=== PATIENT | female | born 1970 | race African-American/Black ===

== ENCOUNTER 2023-04-27 20:40 | Emergency (ER) | payer OTHER ==
[~2023-04-27] VITALS: Ht 162.6 cm; Wt 80.9 kg
[2023-04-27] MEDS ORDERED: FLEXERIL 1010 MG/TAB PO (23:10)
[2023-04-27] MEDS ORDERED: NAPROSYN500 MG PO (23:10)
[2023-04-27 23:39] VITALS: BP 124/70; PULSE 76
== END 2023-04-27 23:53 | disposition home or self-care (01) ==
LOC: COL.ER 20:40
DX: M54.16 Radiculopathy, lumbar region (principal); Z79.899 Other long term (current) drug therapy; Z79.891 Long term (current) use of opiate analgesic; Z88.6 Allergy status to analgesic agent

== ENCOUNTER 2024-02-11 14:47 | Emergency (ER) | payer OTHER ==
[~2024-02-11] VITALS: Ht 160 cm; Wt 82.3 kg
[~2024-02-11 14:47] MED LIST: FLEXERIL 1010 MG/TAB PO; NAPROSYN500 MG PO
[2024-02-11 15:02] VITALS: BP 128/91; TEMP 98.1
[2024-02-11 16:30] VITALS: PULSE 87
== END 2024-02-11 16:30 | disposition home or self-care (01) ==
LOC: COL.ER 14:47
DX: E11.40 Type 2 diabetes mellitus with diabetic neuropathy, unspecified (principal); Z79.899 Other long term (current) drug therapy